=== PATIENT | male | born 1940 | race Caucasian/White ===

== ENCOUNTER 2022-07-06 16:36 | Inpatient (IN) | payer MEDICARE, BC ==
[~2022-07-06] VITALS: Ht 182.9 cm; Wt 85.7 kg
[2022-07-06] MEDS ORDERED: WARF1TAB2 (16:49)
[2022-07-06] MEDS ORDERED: AZITHROMYCIN 500MG/ D5W 250ML IVPB **ER PYXIS ONLY IV ONE (16:58)
[2022-07-06] MEDS ORDERED: CEFTRIAXONE 1 G VIAL ONE (16:59)
[2022-07-06] MEDS ORDERED: ACETAMINOPHEN 650 MG SUPP.RECT RC ONE ×2 (16:59→17:00)
[2022-07-06] MEDS ORDERED: IV NORMAL SALINE 500 ML BAG IV ONE (17:00)
[2022-07-06] MEDS ORDERED: CEFTRIAXONE 2 G in IV DEXTROSE 5% 50 ML IV ONE (17:00)
[2022-07-06] MEDS ORDERED: AZITHROMYCIN IV 500 MG in IV DEXTROSE 5% 250 ML IV ONE (17:00)
[2022-07-06 17:11] LABS: SITE, VBG RIGHT RADIAL; VENT MODE, VBG RA
--- NOTE | 2022-07-06 17:17 | NUR ---
PT IS IN ROOM #1A. DR BEARD EVALUATED THE PT.
--- NOTE | 2022-07-06 19:04 | NUR ---
REPORT WAS GIVEN TO PUBLIC SPEAKERLAWN AND GARDEN TECHNICIAN.
[2022-07-06 19:15] LABS: HEMATOCRIT 33.6 % (36.7-47.1); MEAN CORPUSCULAR HEMOGLOBIN 26.9 uug (23.8-33.4); MEAN CORPUSCULAR VOLUME 82.2 fL (73.0-96.2); PLATELET COUNT (AUTO) 325 K/uL (152-348)
[2022-07-06] MEDS ORDERED: CEFEPIME HCL 2 G in IV DEXTROSE 5% 100 ML IV SCH ×2 (19:15→23:45)
[2022-07-06 19:33] LABS: CARBON DIOXIDE 24 mmol/L (21-32); CHLORIDE 107 mmol/L (98-107); GLUCOSE 149 mg/dL (74-106); POTASSIUM 3.1 mmol/L (3.5-5.1); UREA NITROGEN, BLOOD 29 mg/dL (7-18)
[2022-07-06 19:34] LABS: *BILIRUBIN,URIN NEGATIVE (NEGATIVE); *BLOOD, URINE 2+ (NEGATIVE); *CLARITY,URINE CLEAR (CLEAR); *COLOR,URINE YELLOW (YELLOW); *KETONES,URINE NEGATIVE (NEGATIVE); *UROBILINOGEN,URINE 0.2 E.U./dl (NORMAL); LEUKOCYTE ESTERASE ,URINE 3+ (NEGATIVE); NITRITE, URINE NEGATIVE (NEGATIVE); UGLUCOSE NEGATIVE (NEGATIVE)
[2022-07-06] MEDS ORDERED: POTASSIUM CHLORIDE 20 MEQ POWDER PACKET GT ONE (19:45)
[2022-07-06 19:46] LABS: ALANINE AMINOTRANSFERASE 21 U/L (16-63); ALKALINE PHOSPHATASE 73 U/L (50-136); ASPARTATE AMINOTRANSFERASE 18 U/L (15-37); BILIRUBIN,DIRECT 0.4 mg/dL (0.0-0.2); BILIRUBIN,TOTAL 0.6 mg/dL (0.2-1.0); TOTAL PROTEIN, SERUM 6.5 g/dL (6.4-8.2)
[2022-07-06] MEDS ORDERED: ONDANSETRON 4 MG/2 ML VIAL IV PRN (22:00)
[2022-07-06] MEDS ORDERED: ACETAMINOPHEN 325 MG TABLET PO PRN (22:00)
[2022-07-06] MEDS ORDERED: CEFTRIAXONE 1 G in IV DEXTROSE 5% 50 ML IV SCH (22:00)
[2022-07-06] MEDS ORDERED: MORPHINE SULFATE 2 MG/1 ML DISP.SYRIN IV PRN (22:00)
[2022-07-06] MEDS ORDERED: ALBUTEROL SULFATE 2.5 MG/ 0.5 ML NEBU NEB PRN (22:00)
--- NOTE | 2022-07-06 22:54 | NUR ---
REPORT CALLED AND GIVEN TO FUNMILAYO SIFUENTES AT CCU.
--- NOTE | 2022-07-06 23:42 | NUR ---
Patient in a stable condition, via gurney was taken to CCU room to for a continued expert care.
--- NOTE | 2022-07-06 23:53 | NUR ---
Recieved pt from ED nurse. Pt is awake and oriented X2 on room air and able to move himself from the gurney to the bed with minimal assistance. Dr Mckenna has already seen the patient when he was in ED and entered orders for his care. Addendum: 07/07/22 at 0007 by FUNMILAYO JOE RN pt arrived with no belonging from ED. He stated that he lives at home with his
[2022-07-07] VITALS (27 sets, daily range): BP systolic 97–169; BP diastolic 7–99
[2022-07-07] MEDS ORDERED: POTASSIUM CHLORIDE 20 MEQ TAB.PRT.SR ONE (00:15)
--- NOTE | 2022-07-07 00:15 | NUR ---
ED nurse came up to unit to give potassium ordered for 194 in ED and not previously given.
[2022-07-07 00:36] LABS: RBC,URINE 20-50 /HPF (0-3)
[2022-07-07 00:37] LABS: BACTERIA,URINE MODERATE /HPF (NONE SEEN); SQUAMOUS EPITHELIAL CELL,UR NONE SEEN /HPF (NONE SEEN); WBC,URINE 50-80 /HPF (0-3)
[2022-07-07 05:11] LABS: HEMATOCRIT 34.6 % (36.7-47.1); MEAN CORPUSCULAR HEMOGLOBIN 26.6 uug (23.8-33.4); MEAN CORPUSCULAR VOLUME 83.3 fL (73.0-96.2); PLATELET COUNT (AUTO) 311 K/uL (152-348)
[2022-07-07 05:35] LABS: ALANINE AMINOTRANSFERASE 20 U/L (16-63); ALKALINE PHOSPHATASE 72 U/L (50-136); ASPARTATE AMINOTRANSFERASE 31 U/L (15-37); BILIRUBIN,TOTAL 0.5 mg/dL (0.2-1.0); CARBON DIOXIDE 28 mmol/L (21-32); CHLORIDE 106 mmol/L (98-107); CHOLESTEROL 112 mg/dL (<200); CREATININE 1.8 mg/dL (0.6-1.3); GLUCOSE 113 mg/dL (74-106); HDL CHOLESTEROL 36 mg/dL (40-60); MAGNESIUM 1.9 mg/dL (1.8-2.4); PHOSPHOROUS 4.2 mg/dL (2.5-4.9); POTASSIUM 4.1 mmol/L (3.5-5.1); TOTAL PROTEIN, SERUM 6.6 g/dL (6.4-8.2); TRIGLYCERIDES 54 MG/DL (30-150); UREA NITROGEN, BLOOD 34 mg/dL (7-18)
[2022-07-07 05:37] LABS: IRON, SERUM 16 ug/dL (50-175)
--- NOTE | 2022-07-07 05:48 | NUR ---
Dr Mckenna notified about increasing troponin of 179 from previous value of 162.
[2022-07-07] MEDS: PANTOPRAZOLE SODIUM 40 MG TABLET.DR PO SCH (06:06)
--- NOTE | 2022-07-07 06:12 | NUR ---
Spoke with Ruby Ramos about pt's condition and elevated troponin. She will enter orders and come to see the patient
[2022-07-07] MEDS ORDERED: HEPARIN SODIUM,PORCINE 5,000 UNITS/ML VIAL SQ SCH ×2 (09:00)
[2022-07-07] MEDS ORDERED: FUROSEMIDE 20 MG/2 ML VIAL IV SCH (09:00)
[2022-07-07] MEDS: CEFEPIME HCL 1 G in IV DEXTROSE 5% 50 ML IV SCH ×2 (09:23→21:53)
--- NOTE | 2022-07-07 15:08 | NUR ---
BETWEEN 1400:1500 HOURS, PATIENT'S HEART RATE JUMPED TO AFIB WITH RVR AT [address] UNABLE TO REACH [address] SANTACRUZ ON HIS PHONE AND UNABLE TO leave message because the voice mail is full. Also tried to reach BAILEE THE STUD SHEEP FARMER AND SHE DID NOT GARDEN LABOURER WELL AND THE VOICE MESSAGE IF FULL ALSO AND I COULD NOT LEAVE ANY MESSAGE . patient continued to be in afib, no drafter civil assign to the patient as yet. will MONITOR.
[2022-07-07] MEDS ORDERED: DILTIAZEM HCL 25 MG IV IV ONE (17:00)
[2022-07-07] MEDS ORDERED: WARFARIN SODIUM 5 MG TABLET PO ONE (17:00)
[2022-07-07] MEDS ORDERED: METOPROLOL TARTRATE 25 MG TABLET PO SCH (18:00)
[2022-07-07] MEDS: DOCUSATE SODIUM 100 MG CAPSULE PO SCH (21:00)
[2022-07-07] MEDS: DILTIAZEM HCL IV 125 MG in IV NORMAL SALINE 100 ML IV PRN (23:57)
[2022-07-08] VITALS (32 sets, daily range): BP systolic 78–157; BP diastolic 36–86
[2022-07-08 05:19] LABS: HEMATOCRIT 34.2 % (36.7-47.1); MEAN CORPUSCULAR VOLUME 82.5 fL (73.0-96.2); PLATELET COUNT (AUTO) 302 K/uL (152-348)
[2022-07-08] MEDS: METOPROLOL TARTRATE 25 MG TABLET PO SCH ×4 (05:32→21:42)
[2022-07-08 05:34] LABS: ALANINE AMINOTRANSFERASE 17 U/L (16-63); ALKALINE PHOSPHATASE 85 U/L (50-136); ASPARTATE AMINOTRANSFERASE 20 U/L (15-37); BILIRUBIN,TOTAL 0.5 mg/dL (0.2-1.0); CARBON DIOXIDE 24 mmol/L (21-32); CHLORIDE 107 mmol/L (98-107); CREATINE KINASE, TOTAL 28 U/L (39-308); CREATININE 2.8 mg/dL (0.6-1.3); GLUCOSE 111 mg/dL (74-106); MAGNESIUM 1.9 mg/dL (1.8-2.4); PHOSPHOROUS 3.3 mg/dL (2.5-4.9); POTASSIUM 3.7 mmol/L (3.5-5.1); TOTAL PROTEIN, SERUM 6.5 g/dL (6.4-8.2); UREA NITROGEN, BLOOD 48 mg/dL (7-18)
[2022-07-08] MEDS: PANTOPRAZOLE SODIUM 40 MG TABLET.DR PO SCH (06:19)
--- NOTE | 2022-07-08 07:30 | NUR ---
REPORT GIVEN TO NEISHA MELLO
[2022-07-08] MEDS: CEFEPIME HCL 1 G in IV DEXTROSE 5% 50 ML IV SCH ×2 (08:02→20:37)
--- NOTE | 2022-07-08 12:12 | NUR ---
While primary R.N. was on lunch break pt. remains with low SBP attending called and notified, with a call back from attending Florina Li she was updated on pt's condition. She will consult credit and loan collections supervisor for follow up on recommendations.
[2022-07-08] MEDS ORDERED: IV NORMAL SALINE 500 ML IV ONE (12:30)
[2022-07-08] MEDS: IV NS 1000 ML 1,000 ML IV PRN (13:43)
[2022-07-08] MEDS: DILTIAZEM HCL IV 125 MG in IV NORMAL SALINE 100 ML IV PRN (14:31)
[2022-07-08 16:34] LABS: *CREATININE,URINE 63.6 mg/dL (30-125)
[2022-07-08] MEDS: FUROSEMIDE 20 MG/2 ML VIAL IV SCH (16:45)
--- NOTE | 2022-07-08 16:58 | NUR ---
Pt's responded to question for Dr Sotelo about AFib. Patient has chronic A Fib that is controlled. Jaky Jen was notified about informed to notify Dr Sotelo.
[2022-07-08] MEDS ORDERED: [UNRECOGNIZED DRUG - REMARK] XX SCH (17:00)
[2022-07-08] MEDS ORDERED: WARFARIN SODIUM 5 MG TABLET PO ONE (17:00)
[2022-07-08 17:14] LABS: *URINE TOTAL PROTEIN RANDOM 617.1 mg/dL (<150/24HR)
[2022-07-08 17:28] LABS: *BILIRUBIN,URIN NEGATIVE (NEGATIVE); *BLOOD, URINE 3+ (NEGATIVE); *COLOR,URINE YELLOW (YELLOW); *KETONES,URINE 1+ (NEGATIVE); *UROBILINOGEN,URINE 0.2 E.U./dl (NORMAL); LEUKOCYTE ESTERASE ,URINE 3+ (NEGATIVE); NITRITE, URINE NEGATIVE (NEGATIVE); UGLUCOSE NEGATIVE (NEGATIVE)
[2022-07-08 17:37] LABS: *CLARITY,URINE TURBID (CLEAR)
[2022-07-08 19:13] LABS: BACTERIA,URINE MODERATE /HPF (NONE SEEN); SQUAMOUS EPITHELIAL CELL,UR FEW /HPF (NONE SEEN); WBC,URINE TNTC /HPF (0-3)
[2022-07-08] MEDS: DOCUSATE SODIUM 100 MG CAPSULE PO SCH (21:42)
[2022-07-09] VITALS (23 sets, daily range): BP systolic 83–134; BP diastolic 26–73
[2022-07-09] MEDS: DILTIAZEM HCL IV 125 MG in IV NORMAL SALINE 100 ML IV PRN (01:08)
[2022-07-09] MEDS: IV NS 1000 ML 1,000 ML IV PRN ×2 (01:13→15:35)
[2022-07-09 05:16] LABS: HEMATOCRIT 29.4 % (36.7-47.1); MEAN CORPUSCULAR HEMOGLOBIN 26.4 uug (23.8-33.4); MEAN CORPUSCULAR VOLUME 81.4 fL (73.0-96.2); PLATELET COUNT (AUTO) 246 K/uL (152-348)
--- NOTE | 2022-07-09 05:26 | NUR ---
On 3 L N/C this shift.
[2022-07-09 05:34] LABS: CARBON DIOXIDE 25 mmol/L (21-32); CHLORIDE 107 mmol/L (98-107); CREATININE 2.3 mg/dL (0.6-1.3); GLUCOSE 115 mg/dL (74-106); MAGNESIUM 1.8 mg/dL (1.8-2.4); PHOSPHOROUS 3.5 mg/dL (2.5-4.9); POTASSIUM 3.3 mmol/L (3.5-5.1); UREA NITROGEN, BLOOD 50 mg/dL (7-18)
[2022-07-09] MEDS: METOPROLOL TARTRATE 25 MG TABLET PO SCH ×3 (05:49→21:06)
[2022-07-09] MEDS: PANTOPRAZOLE SODIUM 40 MG TABLET.DR PO SCH (05:49)
[2022-07-09] MEDS: FUROSEMIDE 20 MG/2 ML VIAL IV SCH (09:10)
[2022-07-09] MEDS: GLUCERNA SHAKE 237 ML CAN PO SCH (09:15)
[2022-07-09] MEDS: CEFEPIME HCL 1 G in IV DEXTROSE 5% 50 ML IV SCH ×2 (09:36→20:29)
[2022-07-09] MEDS ORDERED: POTASSIUM CHLORIDE 50 ML IV SCH (10:00)
[2022-07-09 10:06] LABS: A/G RATIO 0.5 (0.7-1.7); ALPHA-1-GLOBULIN 0.5 g/dL (0.0-0.4); ALPHA-2-GLOBULIN 1.1 g/dL (0.4-1.0); GAMMA GLOBULIN 1.3 g/dL (0.4-1.8); GLOBULIN, TOTAL 3.9 g/dL (2.2-3.9); M-SPIKE Not Observed g/dL (Not Observed)
--- NOTE | 2022-07-09 15:06 | NUR ---
HELD METOPROLOL. PATIENT ON CARDIZEM DRIP. WILL FOLLOW UP WITH CARDIOLOGY.
[2022-07-09] MEDS: [UNRECOGNIZED DRUG - REMARK] XX SCH (17:00)
[2022-07-09] MEDS: DOCUSATE SODIUM 100 MG CAPSULE PO SCH (20:29)
[2022-07-10] VITALS (20 sets, daily range): BP systolic 114–149; BP diastolic 43–91
[2022-07-10] MEDS: IV NS 1000 ML 1,000 ML IV PRN (02:39)
[2022-07-10 05:36] LABS: HEMATOCRIT 31.9 % (36.7-47.1); MEAN CORPUSCULAR VOLUME 81.4 fL (73.0-96.2); PLATELET COUNT (AUTO) 279 K/uL (152-348)
[2022-07-10 05:37] LABS: CARBON DIOXIDE 28 mmol/L (21-32); CHLORIDE 108 mmol/L (98-107); CREATININE 1.4 mg/dL (0.6-1.3); GLUCOSE 102 mg/dL (74-106); POTASSIUM 3.1 mmol/L (3.5-5.1); UREA NITROGEN, BLOOD 36 mg/dL (7-18)
--- NOTE | 2022-07-10 06:27 | NUR ---
Recieved patient in bed from Day shift RN. Pt is alert and oriented x4. He is able to follow commands and interact meaningfully during my assessment. Mary Alice received an update at 20:15 via telephone. Pt had a restful night. Vitals signs stable at the change of shift and report endorsed to day shift RN. Critical INR - of 4.04. Dr Renteria paged with critical results, - awaiting a call back from Dr. Renteria or [facility] oncall provider.
[2022-07-10] MEDS: METOPROLOL TARTRATE 25 MG TABLET PO SCH ×3 (06:33→17:52)
[2022-07-10] MEDS: PANTOPRAZOLE SODIUM 40 MG TABLET.DR PO SCH (06:33)
[2022-07-10] MEDS: CEFEPIME HCL 1 G in IV DEXTROSE 5% 50 ML IV SCH ×2 (09:54→21:08)
[2022-07-10] MEDS: FUROSEMIDE 20 MG/2 ML VIAL IV SCH (10:09)
[2022-07-10] MEDS: GLUCERNA SHAKE 237 ML CAN PO SCH (10:09)
[2022-07-10] MEDS: POTASSIUM CHLORIDE 20 MEQ TAB.PRT.SR PO SCH ×2 (10:09→10:12)
[2022-07-10] MEDS ORDERED: FUROSEMIDE 40 MG TABLET PO ONE (14:00)
[2022-07-10] MEDS: [UNRECOGNIZED DRUG - REMARK] XX SCH (17:00)
[2022-07-10] MEDS: DOCUSATE SODIUM 100 MG CAPSULE PO SCH (21:08)
[2022-07-11] VITALS: BP 133/73
[2022-07-11] MEDS: IV NS 1000 ML 1,000 ML IV PRN (03:04)
[2022-07-11 04:00] VITALS: BP 143/94
[2022-07-11 04:53] LABS: HEMATOCRIT 36.2 % (36.7-47.1); MEAN CORPUSCULAR HEMOGLOBIN 26.8 uug (23.8-33.4); MEAN CORPUSCULAR VOLUME 81.8 fL (73.0-96.2); PLATELET COUNT (AUTO) 332 K/uL (152-348)
[2022-07-11 05:00] LABS: CREATININE 1.2 mg/dL (0.6-1.3); POTASSIUM 3.1 mmol/L (3.5-5.1)
[2022-07-11 08:00] VITALS: BP 154/102
[2022-07-11] MEDS: GLUCERNA SHAKE 237 ML CAN PO SCH (09:55)
[2022-07-11] MEDS: METOPROLOL TARTRATE 25 MG TABLET PO SCH ×2 (09:55→17:56)
[2022-07-11] MEDS: PANTOPRAZOLE SODIUM 40 MG TABLET.DR PO SCH (09:55)
[2022-07-11] MEDS: CEFEPIME HCL 1 G in IV DEXTROSE 5% 50 ML IV SCH ×2 (09:58→21:01)
[2022-07-11] MEDS ORDERED: POTASSIUM CHLORIDE 20 MEQ TAB.PRT.SR PO ONE (10:00)
[2022-07-11] MEDS ORDERED: POTASSIUM CHLORIDE 50 ML IV SCH (10:00)
[2022-07-11 12:00] VITALS: BP 141/92
[2022-07-11 16:00] VITALS: BP 144/64
[2022-07-11] MEDS: [UNRECOGNIZED DRUG - REMARK] XX SCH (17:00)
[2022-07-11 20:00] VITALS: BP 123/69
[2022-07-11] MEDS: DOCUSATE SODIUM 100 MG CAPSULE PO SCH (20:59)
[2022-07-11] MEDS: TAMSULOSIN HCL 0.4 MG CAP.SR.24H PO SCH (20:59)
[2022-07-12] VITALS: BP 130/74
[2022-07-12 04:00] VITALS: BP 126/84
[2022-07-12 04:52] LABS: HEMATOCRIT 36.3 % (36.7-47.1); MEAN CORPUSCULAR HEMOGLOBIN 26.2 uug (23.8-33.4); MEAN CORPUSCULAR VOLUME 81.9 fL (73.0-96.2); PLATELET COUNT (AUTO) 358 K/uL (152-348)
[2022-07-12 04:55] LABS: CREATININE 1.1 mg/dL (0.6-1.3); POTASSIUM 3.5 mmol/L (3.5-5.1)
--- NOTE | 2022-07-12 07:00 | NUR ---
Recieved pt from bellows assembler nurse. Pt is resting comfortably on room air with IV at TKO. Cardiac rhytm is A Fib. VS stable and pt is afebrile. Urine is yellow and clear.
[2022-07-12] MEDS: PANTOPRAZOLE SODIUM 40 MG TABLET.DR PO SCH (07:47)
[2022-07-12 08:00] VITALS: BP 149/81
[2022-07-12] MEDS: CEFEPIME HCL 1 G in IV DEXTROSE 5% 50 ML IV SCH ×2 (08:00→20:42)
[2022-07-12] MEDS: METOPROLOL TARTRATE 25 MG TABLET PO SCH ×2 (08:02→17:29)
[2022-07-12] MEDS: GLUCERNA SHAKE 237 ML CAN PO SCH ×2 (08:02→17:27)
[2022-07-12 12:04] VITALS: BP 115/72
[2022-07-12 16:00] VITALS: BP 132/76
[2022-07-12] MEDS: [UNRECOGNIZED DRUG - REMARK] XX SCH (17:00)
[2022-07-12 20:00] VITALS: BP 125/58
[2022-07-12] MEDS: TAMSULOSIN HCL 0.4 MG CAP.SR.24H PO SCH (20:42)
[2022-07-12] MEDS: DOCUSATE SODIUM 100 MG CAPSULE PO SCH (20:42)
[2022-07-13] VITALS: BP 101/71
[2022-07-13 04:00] VITALS: BP 123/77
[2022-07-13 05:07] LABS: HEMATOCRIT 33.4 % (36.7-47.1); MEAN CORPUSCULAR HEMOGLOBIN 25.9 uug (23.8-33.4); MEAN CORPUSCULAR VOLUME 81.5 fL (73.0-96.2); PLATELET COUNT (AUTO) 386 K/uL (152-348)
[2022-07-13 05:19] LABS: CARBON DIOXIDE 29 mmol/L (21-32); CHLORIDE 107 mmol/L (98-107); GLUCOSE 127 mg/dL (74-106); POTASSIUM 3.1 mmol/L (3.5-5.1); UREA NITROGEN, BLOOD 21 mg/dL (7-18)
--- NOTE | 2022-07-13 06:21 | NUR ---
End of shift summary. Patient received in bed, awake and alert to name only. Patient is telemetry status. Pt had a comfortable night without any distress. No complaint of pain., however patient is significantly more guarded and does not move as freely as he did two days ago when I cared for him. Pt seems reluctant to move when asked to do so. He reaches his hand out to me in an effort to have me turn him. Patient slept well. He had 2 large bowel movements, brown and pasty. Vitals signs stable at the change of shift. [facility].
[2022-07-13 08:00] VITALS: BP 167/84
[2022-07-13] MEDS: PANTOPRAZOLE SODIUM 40 MG TABLET.DR PO SCH (08:32)
[2022-07-13] MEDS: CEFEPIME HCL 1 G in IV DEXTROSE 5% 50 ML IV SCH ×2 (08:32→20:13)
[2022-07-13] MEDS: METOPROLOL TARTRATE 25 MG TABLET PO SCH (08:39)
[2022-07-13] MEDS: GLUCERNA SHAKE 237 ML CAN PO SCH ×2 (08:47→18:28)
[2022-07-13] MEDS ORDERED: POTASSIUM CHLORIDE 20 MEQ TAB.PRT.SR PO ONE ×2 (09:15→14:45)
[2022-07-13] MEDS: IV NS 1000 ML 1,000 ML IV PRN ×2 (11:51→23:32)
[2022-07-13 12:00] VITALS: BP 127/84
[2022-07-13] MEDS ORDERED: DIGOXIN 125 MCG TABLET PO SCH (14:45)
[2022-07-13 16:00] VITALS: BP 129/71
[2022-07-13] MEDS ORDERED: WARFARIN SODIUM 5 MG TABLET PO ONE (17:00)
[2022-07-13] MEDS: [UNRECOGNIZED DRUG - REMARK] XX SCH (17:00)
[2022-07-13] MEDS: METOPROLOL TARTRATE 50 MG TABLET PO SCH (18:25)
--- NOTE | 2022-07-13 19:03 | NUR ---
Speech evaluation completed. Cleared by speech therapist for cardiac diet, regular consistency, along with thin liquids.
[2022-07-13 20:00] VITALS: BP 107/49
[2022-07-13] MEDS: TAMSULOSIN HCL 0.4 MG CAP.SR.24H PO SCH (20:12)
[2022-07-13] MEDS: DOCUSATE SODIUM 100 MG CAPSULE PO SCH (20:15)
--- NOTE | 2022-07-14 02:22 | NUR ---
Transfer Note Pt transferred to Room 329 via bed Vital signs stable. Report endorsed to Edith DRIVER.
--- NOTE | 2022-07-14 02:45 | NUR ---
RECD PT FROM CCU,VIA BED, NO ACUTE DISTRESS NOTED,ALERT,ORIENTEDX1,ABLE TO FF SIMPLE COMMANDS. DNR/DNI STATUS.ON TELEMETRY AFIB W/ BB,EF IS 60-65%,INTERMITTENTLY CONFUSED. IV FLUIDS NS AT 90ML/HR INFUSINGWELL VIA PERIPHERAL IV ON LEFT ,HAND G 22. KEPT DRY AND CLEAN,SALEH CATH DRAINING FAIRLY WELL TO HELGA URINE.ON CARDIAC DIET.PASSED SWALLOW TEST EARLIER.COCCYX AREA VERY RED, REPOSITIONED FOR COMFORT, HAD A MEDIUM BM ON DIAPER, DESTIN CARE DONE. MEPILEX APPLIED OVER REDDENED AREA.
[2022-07-14 02:50] VITALS: BP 100/58
[2022-07-14 04:00] VITALS: BP 102/55
[2022-07-14 07:48] LABS: HEMATOCRIT 31.4 % (36.7-47.1); MEAN CORPUSCULAR HEMOGLOBIN 26.6 uug (23.8-33.4); MEAN CORPUSCULAR VOLUME 83.6 fL (73.0-96.2); PLATELET COUNT (AUTO) 355 K/uL (152-348)
--- NOTE | 2022-07-14 07:58 | NUR ---
ENDORSED TO AM NURSE , IN APPARENTLY FAIR CONDITION. SOUND ASLEEP AT THIS TIME..
[2022-07-14 08:13] LABS: CREATININE 0.9 mg/dL (0.6-1.3); POTASSIUM 3.7 mmol/L (3.5-5.1)
[2022-07-14] MEDS ORDERED: DIGOXIN 500 MCG/2 ML AMP IV ONE (08:45)
[2022-07-14] MEDS: CEFEPIME HCL 1 G in IV DEXTROSE 5% 50 ML IV SCH (09:35)
[2022-07-14] MEDS: METOPROLOL TARTRATE 50 MG TABLET PO SCH ×2 (09:35→17:21)
[2022-07-14] MEDS: GLUCERNA SHAKE 237 ML CAN PO SCH ×2 (09:36→17:19)
[2022-07-14] MEDS: PANTOPRAZOLE SODIUM 40 MG TABLET.DR PO SCH (09:39)
[2022-07-14 11:56] VITALS: BP 114/66
[2022-07-14 16:54] VITALS: BP 131/56
[2022-07-14] MEDS ORDERED: WARFARIN SODIUM 5 MG TABLET PO ONE (17:00)
[2022-07-14] MEDS ORDERED: CEFEPIME HCL 1 G in IV DEXTROSE 5% 50 ML IV SCH (17:00)
[2022-07-14 17:21] VITALS: BP 139/60
[2022-07-14] MEDS ORDERED: TAMS-3 PO (21:47)
[2022-07-14] MEDS ORDERED: DOCU100C36 PO (21:47)
[2022-07-14] MEDS ORDERED: NUT.237L36 PO (21:47)
[2022-07-14] MEDS ORDERED: METO100T14 PO (21:47)
[2022-07-14] MEDS ORDERED: ACET-2154 PO (21:47)
[2022-07-14] MEDS ORDERED: ALBU2.5V38 NEB (21:47)
[2022-07-14] MEDS ORDERED: ALBU1.25 IH (21:47)
[2022-07-14] MEDS ORDERED: DIGO125T PO (21:47)
[2022-07-14] MEDS ORDERED: PANT40TA49 PO (21:47)
[2022-07-15] MEDS ORDERED: DIGOXIN 125 MCG TABLET PO SCH (09:00)
[2022-07-15] MEDS ORDERED: WARF-58 PO (11:55)
== END 2022-07-14 18:21 | DRG 871 ==
LOC: ER 16:39 → CCU 23:20 → TELE3 07-14 02:40
PROVIDERS: ADMIT Internal Medicine; ATTEND Nurse Practitioner Acute Care
DX: A41.9 Sepsis, unspecified organism (principal); E43 Unspecified severe protein-calorie malnutrition; G92.8 Other toxic encephalopathy; I21.A1 Myocardial infarction type 2; I50.33 Acute on chronic diastolic (congestive) heart failure; N17.0 Acute kidney failure with tubular necrosis; N13.6 Pyonephrosis; E87.20 Acidosis, unspecified; I48.20 Chronic atrial fibrillation, unspecified; D68.69 Other thrombophilia; J84.9 Interstitial pulmonary disease, unspecified; R65.20 Severe sepsis without septic shock; I48.91 Unspecified atrial fibrillation; D64.9 Anemia, unspecified; E87.6 Hypokalemia; E88.09 Other disorders of plasma-protein metabolism, not elsewhere classified; Z20.822 Contact with and (suspected) exposure to COVID-19; Z86.73 Personal history of transient ischemic attack (TIA), and cerebral infarction without residual deficits; Z79.01 Long term (current) use of anticoagulants; N40.0 Benign prostatic hyperplasia without lower urinary tract symptoms; I25.10 Atherosclerotic heart disease of native coronary artery without angina pectoris; F01.50 Vascular dementia, unspecified severity, without behavioral disturbance, psychotic disturbance, mood disturbance, and anxiety; Z74.09 Other reduced mobility; Z68.25 Body mass index [BMI] 25.0-25.9, adult; N18.9 Chronic kidney disease, unspecified; N40.1 Benign prostatic hyperplasia with lower urinary tract symptoms; B96.1 Klebsiella pneumoniae [K. pneumoniae] as the cause of diseases classified elsewhere; Z66 Do not resuscitate
CPT/HCPCS: 36415; 36600; 70450; 71045; 83550; 83605; 83735; 83935; 83970; 84100; 84153; 84155; 84156; 84165; 84300; 84443; 84484; 85025; 85610; 85730; 87040; 93005; 93307; A4663; A6209; C1758; G0378; J0456; J0692; J0696; J1160; J1940; J3480; J3490; J7040; J7042

== ENCOUNTER 2022-07-14 18:22 | Inpatient (IN) | payer MEDICARE, BC ==
[~2022-07-14] VITALS: Ht 172.7 cm; Wt 117.5 kg
[~2022-07-14 18:22] MED LIST: WARF1TAB2
[2022-07-14] MEDS ORDERED: REMEDY ESSENTIAL ZINC PASTE 113 GM TOP PRN (20:00)
--- NOTE | 2022-07-14 20:00 | NUR ---
Received a 81 year old male from med surg with admitting diagnosis of acute metabolic encepalopathy, sepsis, UTI and general weakness. AAOx2-3 with periods of confusion at times. Hx of Dementia, Afib,HTN and cholecystitis. All needs attended. VSS Skin intact, redness on sacral area. Pruitt d/bud @ 1400 and will monitor for voiding. Patient bladder scan noted 395 ml in the bladder. Dr Manning aware. Abdomen was distended, straight cath obtained 650 cc yellow urine. Kept comfortable. Fall precautions maintained. #20 heplock on left arm. Siderails up for safety.
[2022-07-14] MEDS ORDERED: DOCU100C36 PO (21:47)
[2022-07-14] MEDS ORDERED: METO100T14 PO (21:47)
[2022-07-14] MEDS ORDERED: ALBU1.25 IH (21:47)
[2022-07-14] MEDS ORDERED: NUT.237L36 PO (21:47)
[2022-07-14] MEDS ORDERED: ACET-2154 PO (21:47)
[2022-07-14] MEDS ORDERED: ALBU2.5V38 NEB (21:47)
[2022-07-14] MEDS ORDERED: TAMS-3 PO (21:47)
[2022-07-14] MEDS ORDERED: DIGO125T PO (21:47)
[2022-07-14] MEDS ORDERED: PANT40TA49 PO (21:47)
[2022-07-14 21:50] VITALS: BP 122/63
[2022-07-15 07:52] VITALS: BP 157/76
[2022-07-15] MEDS ORDERED: WARF-58 PO (11:55)
[2022-07-15] MEDS ORDERED: ALBUTEROL SULFATE 2.5 MG/3 ML NEBU NEB PRN (13:15)
[2022-07-15] MEDS: PANTOPRAZOLE SODIUM 40 MG TABLET.DR PO SCH (13:29)
[2022-07-15] MEDS: METOPROLOL SUCCINATE XL 50 MG TAB.SR.24H PO SCH (13:30)
[2022-07-15] MEDS: DIGOXIN 125 MCG TABLET PO SCH (13:30)
[2022-07-15] MEDS: ENSURE CLEAR 240 ML LIQUID (MIX BERRY) PO SCH ×2 (13:45→17:02)
--- NOTE | 2022-07-15 13:56 | NUR ---
INTERDISCIPLINARY TEAM CONFERENCE
[2022-07-15 16:13] VITALS: BP 130/77
[2022-07-15] MEDS ORDERED: GLUCERNA SHAKE 237 ML CAN PO SCH (17:00)
[2022-07-15] MEDS ORDERED: WARFARIN SODIUM 5 MG TABLET PO ONE (17:00)
[2022-07-15] MEDS: COUMADIN VARIABLE DOSE REMINDE XX SCH (17:03)
[2022-07-15 20:00] VITALS: BP 142/62
[2022-07-15] MEDS: DOCUSATE SODIUM 100 MG CAPSULE PO SCH ×2 (20:54→20:58)
[2022-07-15] MEDS ORDERED: TAMSULOSIN HCL 0.4 MG CAP.SR.24H PO SCH (21:00)
[2022-07-15] MEDS: ENOXAPARIN SODIUM 120 MG/0.8 ML SYRINGE SQ SCH (21:16)
--- NOTE | 2022-07-15 22:40 | NUR ---
Bladder scan performed 767 ml noted, In and out done= 920 ml dark yellow colored urine output noted. Patient denied any bladder discomforts initially, tolerated procedure well.
--- NOTE | 2022-07-16 06:25 | NUR ---
Bladder quite distended, but denies any pain/discomforts, bladder scan performed shows 707ml urine volume, In and out total of 1280 ml, well tolerated with small streaks of fresh red blood noted. Will endorsed accordingly to oncoming shift.
[2022-07-16] MEDS: PANTOPRAZOLE SODIUM 40 MG TABLET.DR PO SCH (06:30)
[2022-07-16 08:03] VITALS: BP 126/64
[2022-07-16] MEDS: ENSURE CLEAR 240 ML LIQUID (MIX BERRY) PO SCH ×2 (08:35→17:06)
[2022-07-16] MEDS: DIGOXIN 125 MCG TABLET PO SCH (08:35)
[2022-07-16] MEDS: METOPROLOL SUCCINATE XL 50 MG TAB.SR.24H PO SCH (08:35)
[2022-07-16] MEDS: ENOXAPARIN SODIUM 120 MG/0.8 ML SYRINGE SQ SCH ×2 (08:40→20:28)
[2022-07-16] MEDS: TAMSULOSIN HCL 0.4 MG CAP.SR.24H PO SCH ×2 (13:23→21:19)
--- NOTE | 2022-07-16 15:52 | NUR ---
PATIENT STILL NOTED WITH URINE RETENTION, BLADDER SCAN PERFORMED, AND IN AND OUT CATH WITH OUT PUT OF 600ML. Addendum: 07/16/22 at 1607 by VONDA GONZALEZ RN, RN REFUSED TO HAVE SALEH AT THIS TIME, SEVERIANO GILBERT IS AWARE ABOUT URINE RETENTION.
[2022-07-16 15:56] VITALS: BP 123/63
[2022-07-16] MEDS ORDERED: WARFARIN SODIUM 5 MG TABLET PO ONE (17:00)
[2022-07-16] MEDS: COUMADIN VARIABLE DOSE REMINDE XX SCH (17:06)
[2022-07-16 20:00] VITALS: BP 105/70
[2022-07-16] MEDS: DOCUSATE SODIUM 100 MG CAPSULE PO SCH (20:28)
[2022-07-17 04:00] VITALS: BP 124/68
[2022-07-17] MEDS: PANTOPRAZOLE SODIUM 40 MG TABLET.DR PO SCH (06:01)
[2022-07-17 07:45] VITALS: BP 127/70
[2022-07-17] MEDS: ENSURE CLEAR 240 ML LIQUID (MIX BERRY) PO SCH ×2 (08:39→17:21)
[2022-07-17] MEDS: METOPROLOL SUCCINATE XL 50 MG TAB.SR.24H PO SCH (08:41)
[2022-07-17] MEDS: TAMSULOSIN HCL 0.4 MG CAP.SR.24H PO SCH ×2 (08:42→20:53)
[2022-07-17] MEDS: ENOXAPARIN SODIUM 120 MG/0.8 ML SYRINGE SQ SCH ×2 (08:42→20:55)
[2022-07-17] MEDS: DIGOXIN 125 MCG TABLET PO SCH (08:42)
--- NOTE | 2022-07-17 13:53 | NUR ---
INDIVIDUALIZED PLAN OF CARE
[2022-07-17 16:32] VITALS: BP 146/86
[2022-07-17] MEDS ORDERED: WARFARIN SODIUM 5 MG TABLET PO ONE (17:00)
[2022-07-17] MEDS: COUMADIN VARIABLE DOSE REMINDE XX SCH (17:22)
--- NOTE | 2022-07-17 18:21 | NUR ---
Patient alert and oriented, able to communicate simple needs and follow simple directions. OOB with physical therapy during shift, actively able to participate in therapy. Patient requires extensive assist with ADLS, incontinent of both, good perineal care provided. Patient denies any bladder discomfort, voiding freely. No s/s of urinary retention noted. On blood thinners as ordered; no s/s of bleeding, safety precautions observed. All needs anticipated and met.
[2022-07-17 20:00] VITALS: BP_SYST 124; BP_SYST 131; BP_DIAS 53; BP_DIAS 66
[2022-07-17] MEDS: DOCUSATE SODIUM 100 MG CAPSULE PO SCH (20:53)
[2022-07-18 04:00] VITALS: BP 125/75
--- NOTE | 2022-07-18 04:08 | NUR ---
AAOx2-3 with some periods of confusion at times. Needs attended. VSS. ' Repositioned for comfort. Turned to sides. Incontinent of urine x2. Kept clean and dry. No BM today. Fall precautions maintained. Siderails up for safety.
[2022-07-18] MEDS: PANTOPRAZOLE SODIUM 40 MG TABLET.DR PO SCH (06:03)
[2022-07-18 07:33] VITALS: BP 133/69
[2022-07-18] MEDS: ENSURE CLEAR 240 ML LIQUID (MIX BERRY) PO SCH ×2 (09:47→16:43)
[2022-07-18] MEDS: METOPROLOL SUCCINATE XL 50 MG TAB.SR.24H PO SCH (09:48)
[2022-07-18] MEDS: DIGOXIN 125 MCG TABLET PO SCH (09:48)
[2022-07-18] MEDS: TAMSULOSIN HCL 0.4 MG CAP.SR.24H PO SCH ×2 (09:49→20:22)
[2022-07-18] MEDS: ENOXAPARIN SODIUM 120 MG/0.8 ML SYRINGE SQ SCH (09:50)
[2022-07-18 15:42] VITALS: BP 126/57
[2022-07-18] MEDS: WARFARIN SODIUM 5 MG TABLET PO SCH (16:42)
[2022-07-18] MEDS: COUMADIN VARIABLE DOSE REMINDE XX SCH (16:43)
[2022-07-18 20:00] VITALS: BP 122/58
[2022-07-18] MEDS: DOCUSATE SODIUM 100 MG CAPSULE PO SCH (20:22)
[2022-07-19 04:29] VITALS: BP 139/76
--- NOTE | 2022-07-19 04:57 | NUR ---
AAOx2-3 with periods of confusion. VSS Needs attended. Tolerated po meds well. Fall precautions maintained. Incontinent of bowel and bladder. Slept well throughout the night. No acute distress noted. No complaints presented during shift.
[2022-07-19] MEDS: PANTOPRAZOLE SODIUM 40 MG TABLET.DR PO SCH (06:07)
[2022-07-19 08:00] VITALS: BP 123/76
[2022-07-19 08:04] LABS: HEMATOCRIT 29.6 % (36.7-47.1); MEAN CORPUSCULAR HEMOGLOBIN 26.8 uug (23.8-33.4); PLATELET COUNT (AUTO) 433 K/uL (152-348)
[2022-07-19 09:05] LABS: CARBON DIOXIDE 25 mmol/L (21-32); CHLORIDE 106 mmol/L (98-107); CREATININE 1.9 mg/dL (0.6-1.3); GLUCOSE 101 mg/dL (74-106); MAGNESIUM 2.1 mg/dL (1.8-2.4); PHOSPHOROUS 4.3 mg/dL (2.5-4.9); POTASSIUM 4.1 mmol/L (3.5-5.1); UREA NITROGEN, BLOOD 40 mg/dL (7-18)
[2022-07-19] MEDS: TAMSULOSIN HCL 0.4 MG CAP.SR.24H PO SCH ×2 (09:39→20:41)
[2022-07-19] MEDS: ENSURE CLEAR 240 ML LIQUID (MIX BERRY) PO SCH ×2 (09:39→17:30)
[2022-07-19] MEDS: METOPROLOL SUCCINATE XL 50 MG TAB.SR.24H PO SCH (09:40)
[2022-07-19] MEDS: DIGOXIN 125 MCG TABLET PO SCH (09:40)
[2022-07-19] MEDS ORDERED: IV NS 1000 ML 1,000 ML IV PRN (11:30)
[2022-07-19 15:33] VITALS: BP 118/59
[2022-07-19] MEDS: COUMADIN VARIABLE DOSE REMINDE XX SCH (17:30)
[2022-07-19] MEDS: WARFARIN SODIUM 5 MG TABLET PO SCH (17:30)
[2022-07-19 19:57] VITALS: BP 116/63
[2022-07-19] MEDS: DOCUSATE SODIUM 100 MG CAPSULE PO SCH (20:41)
[2022-07-20 04:28] VITALS: BP 114/78
[2022-07-20] MEDS: PANTOPRAZOLE SODIUM 40 MG TABLET.DR PO SCH (06:09)
[2022-07-20 07:37] VITALS: BP 121/68
[2022-07-20 07:53] LABS: HEMATOCRIT 30.6 % (36.7-47.1); MEAN CORPUSCULAR HEMOGLOBIN 26.7 uug (23.8-33.4); MEAN CORPUSCULAR VOLUME 81.6 fL (73.0-96.2); PLATELET COUNT (AUTO) 479 K/uL (152-348)
[2022-07-20 08:26] LABS: BILIRUBIN,TOTAL 0.6 mg/dL (0.2-1.0); CREATININE 1.2 mg/dL (0.6-1.3); MAGNESIUM 1.8 mg/dL (1.8-2.4); PHOSPHOROUS 3.5 mg/dL (2.5-4.9); POTASSIUM 3.7 mmol/L (3.5-5.1); TOTAL PROTEIN, SERUM 6.7 g/dL (6.4-8.2)
[2022-07-20] MEDS: DIGOXIN 125 MCG TABLET PO SCH (08:45)
[2022-07-20] MEDS: TAMSULOSIN HCL 0.4 MG CAP.SR.24H PO SCH ×2 (08:45→20:28)
[2022-07-20] MEDS: METOPROLOL SUCCINATE XL 50 MG TAB.SR.24H PO SCH (08:46)
[2022-07-20] MEDS: ENSURE CLEAR 240 ML LIQUID (MIX BERRY) PO SCH ×2 (08:46→16:29)
--- NOTE | 2022-07-20 14:19 | NUR ---
patient refused to have CT of head stated he has done already. Addendum: 07/21/22 at 5277 by VONDA GONZALEZ RN, RN dr funk made aware
[2022-07-20 15:16] VITALS: BP 101/65
[2022-07-20 15:22] LABS: THYROID STIMULATING HORMONE 4.115 mIU/mL (0.358-3.740)
[2022-07-20] MEDS: COUMADIN VARIABLE DOSE REMINDE XX SCH (16:29)
[2022-07-20] MEDS: WARFARIN SODIUM 2 MG TABLET PO SCH (16:29)
[2022-07-20 19:50] VITALS: BP 108/70
[2022-07-20] MEDS: DOCUSATE SODIUM 100 MG CAPSULE PO SCH (20:28)
--- NOTE | 2022-07-21 04:38 | NUR ---
patient noted with excoriation to left buttock, wound care consult, dressing applied, encouraged patient to turn and reposition, patient noted with going back to supine position right away, continue to monitor and reinforce and reminders to turn and reposition.
[2022-07-21 04:45] VITALS: BP 113/66
[2022-07-21] MEDS: PANTOPRAZOLE SODIUM 40 MG TABLET.DR PO SCH (06:07)
[2022-07-21] MEDS: ENSURE CLEAR 240 ML LIQUID (MIX BERRY) PO SCH ×2 (08:01→17:22)
[2022-07-21 08:05] VITALS: BP 128/70
[2022-07-21] MEDS: TAMSULOSIN HCL 0.4 MG CAP.SR.24H PO SCH ×2 (09:47→20:45)
[2022-07-21] MEDS: DIGOXIN 125 MCG TABLET PO SCH (09:49)
[2022-07-21] MEDS: METOPROLOL SUCCINATE XL 50 MG TAB.SR.24H PO SCH (09:49)
[2022-07-21 16:00] VITALS: BP 110/62
[2022-07-21] MEDS: WARFARIN SODIUM 2 MG TABLET PO SCH (16:51)
[2022-07-21] MEDS: COUMADIN VARIABLE DOSE REMINDE XX SCH (17:22)
[2022-07-21 20:00] VITALS: BP 123/63
[2022-07-21] MEDS: DOCUSATE SODIUM 100 MG CAPSULE PO SCH (20:45)
[2022-07-22] MEDS: PANTOPRAZOLE SODIUM 40 MG TABLET.DR PO SCH (05:45)
--- NOTE | 2022-07-22 07:15 | NUR ---
Received report from NEISHA Jerez. Pt stable, asleep in bed. No s/s of distress noted. Bed in lowest position, bed alarm on, call light within reach.
[2022-07-22 08:00] VITALS: BP 111/66
[2022-07-22] MEDS: ENSURE CLEAR 240 ML LIQUID (MIX BERRY) PO SCH ×2 (08:34→17:32)
[2022-07-22] MEDS: TAMSULOSIN HCL 0.4 MG CAP.SR.24H PO SCH ×2 (09:17→20:42)
[2022-07-22] MEDS: DIGOXIN 125 MCG TABLET PO SCH (09:17)
[2022-07-22] MEDS: METOPROLOL SUCCINATE XL 50 MG TAB.SR.24H PO SCH (09:18)
--- NOTE | 2022-07-22 10:17 | NUR ---
INTERDISCIPLINARY TEAM CONFERENCE
[2022-07-22] MEDS: ENOXAPARIN SODIUM 120 MG/0.8 ML SYRINGE SQ SCH ×2 (11:07→20:43)
[2022-07-22 11:28] LABS: *BILIRUBIN,URIN NEGATIVE (NEGATIVE); *CLARITY,URINE CLEAR (CLEAR); *COLOR,URINE YELLOW (YELLOW); *KETONES,URINE NEGATIVE (NEGATIVE); LEUKOCYTE ESTERASE ,URINE TRACE (NEGATIVE); NITRITE, URINE NEGATIVE (NEGATIVE); UGLUCOSE NEGATIVE (NEGATIVE)
[2022-07-22 11:36] LABS: *CREATININE,URINE 70.9 mg/dL (30-125); *URINE TOTAL PROTEIN RANDOM 61.8 mg/dL (<150/24HR)
[2022-07-22 12:00] VITALS: BP 110/61
[2022-07-22 12:12] LABS: *BLOOD, URINE TRACE (NEGATIVE)
--- NOTE | 2022-07-22 14:10 | NUR ---
Xuan from Wound Consult in room to see patients nose scab and sacral area. I also gave her a verbal update on pt's wounds.
[2022-07-22 15:29] LABS: BACTERIA,URINE FEW /HPF (NONE SEEN); SQUAMOUS EPITHELIAL CELL,UR FEW /HPF (NONE SEEN)
[2022-07-22 16:00] VITALS: BP 102/52
[2022-07-22] MEDS: WARFARIN SODIUM 2 MG TABLET PO SCH (17:35)
--- NOTE | 2022-07-22 19:21 | NUR ---
Endorsed pt to Layda, caustic cresylate shift superintendent RN, pt stable, no s/s of distress noted.
[2022-07-22] MEDS: DOCUSATE SODIUM 100 MG CAPSULE PO SCH (20:42)
[2022-07-23 05:51] VITALS: BP 127/62
[2022-07-23] MEDS: PANTOPRAZOLE SODIUM 40 MG TABLET.DR PO SCH (06:20)
[2022-07-23 08:00] VITALS: BP 109/69
[2022-07-23] MEDS: ENSURE CLEAR 240 ML LIQUID (MIX BERRY) PO SCH ×2 (08:08→17:11)
[2022-07-23] MEDS: METOPROLOL SUCCINATE XL 50 MG TAB.SR.24H PO SCH ×2 (08:29→08:30)
[2022-07-23] MEDS: DIGOXIN 125 MCG TABLET PO SCH (08:30)
[2022-07-23] MEDS: TAMSULOSIN HCL 0.4 MG CAP.SR.24H PO SCH ×2 (08:30→20:38)
[2022-07-23] MEDS: ENOXAPARIN SODIUM 120 MG/0.8 ML SYRINGE SQ SCH ×2 (08:32→20:39)
[2022-07-23] MEDS: ARGININE/GLUTAMINE/CALCIUM BMB 1 EACH POWD.PACK PO SCH ×2 (09:13→17:11)
--- NOTE | 2022-07-23 13:39 | NUR ---
0730-PATIENT REC'D IN BED, ASLEEP, NO RESPIRATORY DISTRESS NOTED, ON R/A PEYTON. WELL. PATIENT CONTINUES ON LOVENOX/COUMADIN ORDERED BY MD, NO S/S OF BLEEDING OBSERVED, SAFETY PRECAUTIONS EXPLAINED/OBSERVED. HANDLED PATIENT GENTLY AND CAREFULLY DURING CARE. ENCOURAGED PATIENT TO USE CALL LIGHT FOR HELP WHEN NEEDED WITH GOOD UNDERSTANDING. 0900-SCHEDULED/DUE MEDICATION ADMINISTERED ORDERED WITH NO ASE NOTED, ORAL FLUIDS TAKEN WELL, SALEH CATHETER DRAINING TO GRAVITY, NO C/O BLADDER DISCOMFORT. 1100-PATIENT WAS SEEN BY DR ARSALAN GARZA WITH NO NEW ORDERS AT THIS TIME. 1:15PM-PER DR. ARSALAN GARZA, GO AHEAD AND DC SALEH CATHETER AND TO A TRIAL. PATIENT INFORMED OF ORDER AND AGREES, HAS A VISITOR AT BEDSIDE, ASKED TO REMOVE THE SALEH CATHETER ONCE VISITOR IS GONE. WISHES AND CHOICES GRANTED/RESPECTED.
[2022-07-23 16:00] VITALS: BP 117/52
[2022-07-23] MEDS: WARFARIN SODIUM 2 MG TABLET PO SCH (17:10)
--- NOTE | 2022-07-23 18:49 | NUR ---
1700-F/CATH DC'D ORDERED BY . PATIENT TOLERATED WELL PROCEDURE, WILL MONITOR FOR URINE OUTPUT. 1850-PATIENT WAS ABLE TO URINATE, DENIES ANY BLADDER DISCOMFORT. WILL CONT. TO MONITOR. ENDORSED TO INCOMING RN FOR PROPER FOLLOW UP.
[2022-07-23 19:30] VITALS: BP 111/62
[2022-07-23] MEDS: DOCUSATE SODIUM 100 MG CAPSULE PO SCH (20:38)
--- NOTE | 2022-07-23 23:00 | NUR ---
1925-PATIENT IN BED, AWAKE, A/Ox2, VERBALIZES NEEDS AND FOLLOWS DIRECTIONS. NO PHYSICAL OR RESPIRATORY DISTRESS NOTED. SAFETY MEASURES AND CALL LIGHT AT REACH, bed at lowest position, wheels lock, and two side rails up, bed alarm on. ORAL FLUIDS OFFERED PEYTON. AND TAKEN WELL. 2200- The patient is awake. The patient has no signs of distress, or sob. Will continue to monitor throughout the shift. 0000- The patient requested extra pillows. Item is given to the patient. The patient has no sob. Will continue to monitor throughout the shift.
[2022-07-24 04:00] VITALS: BP 113/74
[2022-07-24] MEDS: PANTOPRAZOLE SODIUM 40 MG TABLET.DR PO SCH (06:08)
[2022-07-24 07:55] VITALS: BP 125/71
[2022-07-24] MEDS: DIGOXIN 125 MCG TABLET PO SCH (09:15)
[2022-07-24] MEDS: TAMSULOSIN HCL 0.4 MG CAP.SR.24H PO SCH ×2 (09:15→20:35)
[2022-07-24] MEDS: ARGININE/GLUTAMINE/CALCIUM BMB 1 EACH POWD.PACK PO SCH ×2 (09:16→16:24)
[2022-07-24] MEDS: METOPROLOL SUCCINATE XL 50 MG TAB.SR.24H PO SCH (09:16)
[2022-07-24] MEDS: ENOXAPARIN SODIUM 120 MG/0.8 ML SYRINGE SQ SCH ×2 (09:17→20:37)
[2022-07-24] MEDS: ENSURE CLEAR 240 ML LIQUID (MIX BERRY) PO SCH ×2 (09:19→16:33)
[2022-07-24 16:30] VITALS: BP 132/82
--- NOTE | 2022-07-24 16:39 | NUR ---
RN BLADDER SCAN PATIENT PATIENT HAS A HISTORY OF URINARY RETENTION. BLADDER SCANNER YIELD X>[id number], [id number], AND [id number]. PATIENT DENIES PAIN RELATED TO BLADDER BEING FULL. RN NOTIFIED .
[2022-07-24] MEDS ORDERED: WARFARIN SODIUM 5 MG TABLET PO SCH (17:00)
[2022-07-24] MEDS ORDERED: WARFARIN SODIUM 2 MG TABLET PO SCH (17:00)
--- NOTE | 2022-07-24 19:32 | NUR ---
RECEIVED REPORT FROM DEEPALI BEST SHIFT RN. PATIENT IS ALERT & ORIENTED X1-2 AND SPEAKS KAZAKH. VITAL SIGNS STABLE. PATIENT TOLERATES PO MEDICATIONS AND DIET WELL. HOWEVER, THERE WERE PERIODS OF REFUSAL FOR MEALS. PATIENT VOIDS HOWEVER, NOTED EARLY, CONTINUES TO HAVE URINARY RETENTION. RN NOTIFIED . ORDERED SALEH CATHETER INSERTION. RN INSERTED SALEH CATHETER TO REMOVE THE URINE. TOTAL URINE AMOUNT 1000CC. PATIENT HAD 1 SMALL BOWEL MOVEMENT. PATIENT PARTICIPATES IN PHYSICAL AND OCCUPATION THERAPY PER PLAN. PATIENT DENIES PAIN DURING SHIFT. NO ACUTE DISTRESS NOTED. PATIENT TRIES MANY TIMES TO GET OUT OF BED WITHOUT ASSISTANCE OF NOTIFYING SUPERVISOR WELDING EQUIPMENT REPAIRER. SUPERVISOR WELDING EQUIPMENT REPAIRER ABLE TO REORIENT PATIENT. FALL PRECAUTIONS OBSERVED; INCLUDING BUT NOT LIMITED TO BED IN LOWEST POSITION AND BED ALARM ON. ALL NEEDS MET AT THIS TIME. ENDORSED CARE TO NEISHA BEST, FOR CONTINUATION OF CARE.
[2022-07-24 20:00] VITALS: BP 105/60
[2022-07-24] MEDS: DOCUSATE SODIUM 100 MG CAPSULE PO SCH (20:35)
--- NOTE | 2022-07-24 23:00 | NUR ---
1900-PATIENT IN BED, AWAKE, A/Ox2, VERBALIZES NEEDS AND FOLLOWS DIRECTIONS. NO PHYSICAL OR RESPIRATORY DISTRESS NOTED. The patient has a patent mejia catheter that is patent and below the bladder. SAFETY MEASURES AND CALL LIGHT AT REACH, bed at lowest position, wheels lock, and two side rails up, bed alarm on. ORAL FLUIDS OFFERED PEYTON. AND TAKEN WELL. Will continue to monitor throughout the shift. 2200- The patient is awake. The patient has no signs of distress, or sob. The patient request for an extra blanket. Item is given to the patient. Will continue to monitor throughout the shift. 0100- The patient requests extra pillows. Item is given to the patient. The patient has no sob or complains of pain. Will continue to monitor throughout the shift.
[2022-07-25 05:00] VITALS: BP 110/61
[2022-07-25] MEDS: PANTOPRAZOLE SODIUM 40 MG TABLET.DR PO SCH (06:35)
[2022-07-25 08:00] VITALS: BP 112/72
[2022-07-25] MEDS: TAMSULOSIN HCL 0.4 MG CAP.SR.24H PO SCH ×2 (09:03→20:06)
[2022-07-25] MEDS: ARGININE/GLUTAMINE/CALCIUM BMB 1 EACH POWD.PACK PO SCH ×2 (09:04→16:59)
[2022-07-25] MEDS: DIGOXIN 125 MCG TABLET PO SCH (09:04)
[2022-07-25] MEDS: METOPROLOL SUCCINATE XL 50 MG TAB.SR.24H PO SCH (09:04)
[2022-07-25] MEDS: ENSURE CLEAR 240 ML LIQUID (MIX BERRY) PO SCH ×2 (09:05→16:59)
[2022-07-25] MEDS: ENOXAPARIN SODIUM 120 MG/0.8 ML SYRINGE SQ SCH (09:05)
[2022-07-25 16:40] VITALS: BP 102/57
[2022-07-25] MEDS: WARFARIN SODIUM 4 MG TABLET PO SCH (17:20)
--- NOTE | 2022-07-25 19:48 | NUR ---
RECEIVED REPORT FROM DEEPALI BEST RN. PATIENT IS ALERT & ORIENTED X1-2 AND SPEAKS SINHALA. VITAL SIGNS STABLE. PATIENT TOLERATES PO MEDICATIONS AND DIET. PATIENT DENIES PAIN. SALEH CATHETER PATENT AND DRAINING. NO BOWEL MOVEMENT. AT 1700, RN CHECKED SALEH CATHETER. RN NOTED A LONG THIN STREAK OF BLOOD IN CATHETER. RN NOTIFIED PROVIDER. DISCONTINUED LOVENOX AND CONTINUED WARFARIN ADMIN. NO ACUTE DISTRESS NOTED. FALL PRECAUTIONS OBSERVED INCLUDING BUT NOT LIMITED TO BED IN LOWEST POSITION AND BED ALARM ON. ALL NEEDS MET AT THIS TIME. ENDORSED CARE TO NEISHA BEST FOR CONTINUATION OF CARE.
[2022-07-25] MEDS: DOCUSATE SODIUM 100 MG CAPSULE PO SCH (20:06)
[2022-07-25 20:11] VITALS: BP 117/57
--- NOTE | 2022-07-25 23:00 | NUR ---
1905-PATIENT IN BED, AWAKE, A/Ox2, VERBALIZES NEEDS AND FOLLOWS DIRECTIONS. NO PHYSICAL OR RESPIRATORY DISTRESS NOTED. The patient has a patent mejia catheter that is patent and below the bladder. SAFETY MEASURES AND CALL LIGHT AT REACH. Bed at lowest position, wheels lock, and two side rails up, bed alarm on. Will continue to monitor throughout the shift. 2100- The patient is awake. The patient has no signs of distress, or sob. The patient request for an extra pillow. Item is given to the patient. Will continue to monitor throughout the shift. 0000- The patient is asleep. The patient has no complains of pain. The patient has no sob. Will continue to monitor throughout the shift. 0300-The patient requests for an extra blanket. Item is given to the patient. The patient has no sob or complains of pain. Will continue to monitor throughout the shift.
[2022-07-26 04:11] VITALS: BP 118/65
[2022-07-26] MEDS: PANTOPRAZOLE SODIUM 40 MG TABLET.DR PO SCH (06:26)
[2022-07-26] MEDS: ENSURE CLEAR 240 ML LIQUID (MIX BERRY) PO SCH ×2 (08:33→17:18)
[2022-07-26] MEDS: DIGOXIN 125 MCG TABLET PO SCH (08:34)
[2022-07-26] MEDS: METOPROLOL SUCCINATE XL 50 MG TAB.SR.24H PO SCH (08:34)
[2022-07-26] MEDS: TAMSULOSIN HCL 0.4 MG CAP.SR.24H PO SCH ×2 (08:34→20:37)
[2022-07-26] MEDS: ARGININE/GLUTAMINE/CALCIUM BMB 1 EACH POWD.PACK PO SCH ×2 (09:14→17:18)
[2022-07-26 09:43] VITALS: BP 95/57
--- NOTE | 2022-07-26 09:57 | NUR ---
0730-REC'D PATIENT IN BED ASLEEP, NO RESPIRATORY DISTRESS NOTED ON OXYGEN AT TWO LITERS, SATURATING 94-96% ON R/A, ABLE TO WAKE UP ON GENTLY TOUCH. DENIES PAIN. SALEH CATHETER DRAINING TO GRAVITY. SAFETY MEASURES IN PLACE AND CALL LIGHT AT REACH. 0900-PATIENT EATING BREAKFAST, SCHEDULED/DUE MEDS ADMINISTERED AT THIS TIME. NO ASE NOTED. ORAL FLUIDS TAKEN WELL. CALL LIGHT AT REACH.
[2022-07-26 13:54] VITALS: BP 124/61
[2022-07-26 15:32] VITALS: BP 96/48
[2022-07-26] MEDS: WARFARIN SODIUM 4 MG TABLET PO SCH (17:34)
--- NOTE | 2022-07-26 19:19 | NUR ---
NEEDS ANTICIPATED DURING SHIFT, NO ROBERT OR LOC NOTED, PATIENT WAS TOO SLEEPY DURING HIS PHYSICAL THERAPY. INTERVIEWED PATIENT AND ASKED IF HE WAS FEELING SICK, PATIENT STATED "I AM TOO SLEEPY, I GUESS I DID NOT SLEEP GOOD DURING THE NIGHT." PATIENT TOLERATED MEALS WELL, DENIES GI DISCOMFORT. SALEH CATHETER DRAINING TO GRAVITY. NO C/O BLADDER DISCOMFORT. CONTINUES ON COUMADIN, DOSE ADJUSTED PER PT/INR RESULTS. NO S/S OF BLEEDING NOTED, SAFETY PRECAUTIONS OBSERVED. HANDLED GENTLY AND CAREFULLY DURING CARE.
[2022-07-26 20:00] VITALS: BP 116/56
[2022-07-26] MEDS: DOCUSATE SODIUM 100 MG CAPSULE PO SCH (20:37)
[2022-07-26] MEDS: ENOXAPARIN SODIUM 120 MG/0.8 ML SYRINGE SQ SCH (20:38)
[2022-07-27 04:00] VITALS: BP 111/51
[2022-07-27] MEDS: PANTOPRAZOLE SODIUM 40 MG TABLET.DR PO SCH (06:06)
[2022-07-27 07:02] VITALS: BP 111/51
[2022-07-27 07:34] VITALS: BP 112/58
--- NOTE | 2022-07-27 07:49 | NUR ---
Awake, alert, oriented x 3. Denies discomfort at this time, on moderate high back rest.
[2022-07-27] MEDS: TAMSULOSIN HCL 0.4 MG CAP.SR.24H PO SCH ×2 (08:49→20:26)
[2022-07-27] MEDS: DIGOXIN 125 MCG TABLET PO SCH (08:49)
[2022-07-27] MEDS: METOPROLOL SUCCINATE XL 50 MG TAB.SR.24H PO SCH (08:49)
[2022-07-27] MEDS: ARGININE/GLUTAMINE/CALCIUM BMB 1 EACH POWD.PACK PO SCH ×2 (08:50→17:45)
[2022-07-27] MEDS: ENOXAPARIN SODIUM 120 MG/0.8 ML SYRINGE SQ SCH ×2 (08:50→20:27)
[2022-07-27] MEDS: ENSURE CLEAR 240 ML LIQUID (MIX BERRY) PO SCH ×2 (08:50→17:45)
--- NOTE | 2022-07-27 15:54 | NUR ---
With BM to soft stool. Incontinence care done. Wound care done as ordered. Repositioned comfortably.
[2022-07-27 16:00] VITALS: BP 115/55
[2022-07-27] MEDS: WARFARIN SODIUM 5 MG TABLET PO SCH (17:46)
--- NOTE | 2022-07-27 18:12 | NUR ---
Meal set up, encouraged po intake
[2022-07-27] MEDS: DOCUSATE SODIUM 100 MG CAPSULE PO SCH (20:27)
[2022-07-27 20:55] VITALS: BP 106/57
[2022-07-27] MEDS: FINASTERIDE 5 MG TABLET PO SCH (23:03)
[2022-07-28 04:31] VITALS: BP 116/61
[2022-07-28] MEDS: PANTOPRAZOLE SODIUM 40 MG TABLET.DR PO SCH (06:04)
--- NOTE | 2022-07-28 07:20 | NUR ---
Received report from bry Jerez nurse. Received pt in bed asleep, no s/s of distress noted, no respiratory distress noted.
[2022-07-28] MEDS: ENSURE CLEAR 240 ML LIQUID (MIX BERRY) PO SCH ×2 (07:45→17:17)
[2022-07-28 08:00] VITALS: BP 135/63
[2022-07-28] MEDS: ENOXAPARIN SODIUM 120 MG/0.8 ML SYRINGE SQ SCH ×2 (09:11→20:58)
[2022-07-28] MEDS: DIGOXIN 125 MCG TABLET PO SCH (09:13)
[2022-07-28] MEDS: TAMSULOSIN HCL 0.4 MG CAP.SR.24H PO SCH ×2 (09:13→20:56)
[2022-07-28] MEDS: FINASTERIDE 5 MG TABLET PO SCH (09:13)
[2022-07-28] MEDS: METOPROLOL SUCCINATE XL 50 MG TAB.SR.24H PO SCH (09:14)
[2022-07-28] MEDS: ARGININE/GLUTAMINE/CALCIUM BMB 1 EACH POWD.PACK PO SCH ×2 (09:15→17:17)
--- NOTE | 2022-07-28 15:59 | NUR ---
2+ pitting edema swelling noted on Left hand and forearm noted. Wedding ring removed at 0800 with lotion, due to swelling/edema, labeled and placed at pt's bedside. Pt's took wedding ring home when she left today at 1540. Addendum: 07/28/22 at 1647 by COY HARDIN RN Spoke with MD, will elevate above the heart and continue to monitor for changes, per .
[2022-07-28 16:06] VITALS: BP 130/61
--- NOTE | 2022-07-28 16:47 | NUR ---
Bleeding noted at the urethral opening of penis, where mejia exits. Notified MD Paige. Will continue to monitor.
[2022-07-28] MEDS: WARFARIN SODIUM 5 MG TABLET PO SCH (17:18)
--- NOTE | 2022-07-28 19:08 | NUR ---
Spoke with Pt's Mary Alice Guzman at 1727, updated on pt's status, requested a urine test prior to discharge. UA ordered per SEVERIANO Gibson and talking to Garrett.
[2022-07-28 20:00] VITALS: BP 110/51
[2022-07-28] MEDS: DOCUSATE SODIUM 100 MG CAPSULE PO SCH (20:56)
[2022-07-29 05:56] VITALS: BP 102/56
[2022-07-29] MEDS: PANTOPRAZOLE SODIUM 40 MG TABLET.DR PO SCH (06:08)
[2022-07-29 07:43] VITALS: BP 110/55
[2022-07-29] MEDS: METOPROLOL SUCCINATE XL 50 MG TAB.SR.24H PO SCH (09:00)
[2022-07-29] MEDS: DIGOXIN 125 MCG TABLET PO SCH (09:49)
[2022-07-29] MEDS: FINASTERIDE 5 MG TABLET PO SCH (09:49)
[2022-07-29] MEDS: TAMSULOSIN HCL 0.4 MG CAP.SR.24H PO SCH ×2 (09:49→20:12)
[2022-07-29] MEDS: ENSURE CLEAR 240 ML LIQUID (MIX BERRY) PO SCH ×2 (09:49→17:18)
[2022-07-29] MEDS: ENOXAPARIN SODIUM 120 MG/0.8 ML SYRINGE SQ SCH ×2 (09:54→20:14)
[2022-07-29] MEDS: ARGININE/GLUTAMINE/CALCIUM BMB 1 EACH POWD.PACK PO SCH ×2 (09:57→17:19)
--- NOTE | 2022-07-29 14:12 | NUR ---
INTERDISCIPLINARY TEAM CONFERENCE
[2022-07-29 14:17] LABS: *BILIRUBIN,URIN NEGATIVE (NEGATIVE); *CLARITY,URINE CLEAR (CLEAR); *COLOR,URINE YELLOW (YELLOW); *KETONES,URINE NEGATIVE (NEGATIVE); *UROBILINOGEN,URINE >=8.0 E.U./dl (NORMAL); LEUKOCYTE ESTERASE ,URINE 1+ (NEGATIVE); NITRITE, URINE NEGATIVE (NEGATIVE); UGLUCOSE NEGATIVE (NEGATIVE)
[2022-07-29 14:21] LABS: *BLOOD, URINE TRACE (NEGATIVE)
[2022-07-29 15:09] LABS: BACTERIA,URINE FEW /HPF (NONE SEEN); SQUAMOUS EPITHELIAL CELL,UR NONE SEEN /HPF (NONE SEEN)
[2022-07-29 15:46] VITALS: BP 110/59
[2022-07-29] MEDS: WARFARIN SODIUM 5 MG TABLET PO SCH (17:18)
--- NOTE | 2022-07-29 19:53 | NUR ---
RECEIVED REPORT FROM DEEPALI PALACIO RN. PATIENT IS ALERT & ORIENTED X1-2 AND SPEAKS AUSTRIAN. VITAL SIGNS STABLE. PATIENT TOLERATES PO MEDICATIONS AND DIET WELL. PATIENT PARTICIPATES WITH PHYSICAL AND OCCUPATIONAL THERAPY SCHEDULE. UA COLLECTED AND RESULTED BY LAB. RN REMOVED SALEH CATHETER PER MD ORDERS. PATIENT HAS NOT VOIDED. AT 1830, RN BLADDER SCANNED PATIENT. BLADDER SCAN SHOWERED: 333, 317, & 327. RN NOTIFIED DR. NUHA RYDER MD FOR ADDITIONAL ORDERS. NO ADDITIONAL ORDERS WERE GIVEN AT THIS TIME. PATIENT DENIES PAIN. NO ACUTE DISTRESS NOTED. FALL PRECAUTIONS OBSERVED; INCLUDING BUT NOT LIMITED TO BED IN LOWEST POSITION AND BED ALARM ON. ALL NEEDS MET AT THIS TIME. ENDORSED CARE TO NEISHA PURCELL, FOR CONTINUATION OF CARE.
[2022-07-29 20:00] VITALS: BP 123/60
--- NOTE | 2022-07-29 20:00 | NUR ---
NSG: Received patient lying in bed. a/o x2,no c/o pain or discomfort at this time. call light w/in reach.
[2022-07-29] MEDS: DOCUSATE SODIUM 100 MG CAPSULE PO SCH (20:12)
--- NOTE | 2022-07-29 22:00 | NUR ---
patient voided in diapper. assisted with adl's.
--- NOTE | 2022-07-30 01:06 | NUR ---
NSG: PATIENT I9S RESTING IN BED. REPOSITIONED Q 2 HRS FOR SKIN SAFETY. PATIENT VOIDED LARGE AMOUNT URINE. GOOD PERICARE PROVIDED. KEPT CLEAN AND DRY. CALL LIGHT W/IN REACH.
[2022-07-30 04:00] VITALS: BP 115/58
[2022-07-30] MEDS: PANTOPRAZOLE SODIUM 40 MG TABLET.DR PO SCH (06:06)
--- NOTE | 2022-07-30 06:16 | NUR ---
NSG: REMAIN CALM AND COOPERATIVE. VOIDED X2 AFTER FLOMAX PO GIVEN. ASSISTED WITH ADL'S. KEPT CLEAN AND DRY. CALL LIGHT W/IN REACH.
--- NOTE | 2022-07-30 07:42 | NUR ---
WOUND CARE CONSULT: PT PRESENTS WITH SACRAL DEEP TISSUE INJURY IN EVOLUTION WHICH EXTENDS TO LEFT BUTTOCK, PRESENT ON ADMISSION INTACT DTI. RECOMMENDATIONS MADE FOR SKIN PROTECTION AND WOUND CARE. DISCUSSED WITH NURSING STAFF. PT IS INCONTINENT AT TIMES. IN AGREEMENT WITH PLAN OF CARE. Addendum: 07/30/22 at 0743 by PRERNA ANGULO RN Amended: Links added.
[2022-07-30 08:00] VITALS: BP 117/59
[2022-07-30] MEDS: DIGOXIN 125 MCG TABLET PO SCH (08:28)
[2022-07-30] MEDS: FINASTERIDE 5 MG TABLET PO SCH (08:28)
[2022-07-30] MEDS: TAMSULOSIN HCL 0.4 MG CAP.SR.24H PO SCH ×2 (08:28→20:34)
[2022-07-30] MEDS: ENSURE CLEAR 240 ML LIQUID (MIX BERRY) PO SCH ×2 (08:29→16:51)
[2022-07-30] MEDS: METOPROLOL SUCCINATE XL 50 MG TAB.SR.24H PO SCH (08:29)
[2022-07-30] MEDS: ARGININE/GLUTAMINE/CALCIUM BMB 1 EACH POWD.PACK PO SCH ×2 (08:29→16:51)
[2022-07-30] MEDS: ENOXAPARIN SODIUM 120 MG/0.8 ML SYRINGE SQ SCH (08:30)
[2022-07-30] MEDS: BETHANECHOL CHLORIDE 25 MG TABLET PO SCH ×2 (14:04→16:50)
[2022-07-30] MEDS ORDERED: NITROFURANTOIN/NITROFURAN MAC 100 MG CAPSULE PO SCH (15:30)
[2022-07-30 16:24] VITALS: BP 118/68
[2022-07-30] MEDS: WARFARIN SODIUM 5 MG TABLET PO SCH (16:56)
[2022-07-30] MEDS: CARVEDILOL 3.125 MG TABLET PO SCH (18:33)
--- NOTE | 2022-07-30 19:45 | NUR ---
RECEIVED REPORT FROM DEEPALI PURCELL SHIFT SUPERVISOR BILLPOSTING. PATIENT IS ALERT & ORIENTED X1-2 AND SPEAKS CROATIAN. VITAL SIGNS STABLE. PATIENT TOLERATES PO MEDICATIONS AND DIET WELL. PATIENT PARTICIPATES WITH PHYSICAL AND OCCUPATIONAL THERAPY SCHEDULE. PATIENT UNABLE TO VOID PROPERLY. BLADDER SCANNER AT 1100 SHOWED >800CC. RN NOTIFIED MD. MD ORDERED STRAIGHT CATHETER. RN REMOVED 1275CC OF URINE AT 1400. MD ORDERS CARRIED OUT. RN INSERTED SALEH CATHETER AT 1600. ISAMAR, OF PATIENT, CALLED. RN UPDATED HER ON PATIENT STATUS. RN ENCOURAGED PATIENT TO REACH OUT TO MD VIA [employer] HOTLINE. ALL QUESTIONS ANSWERED. PATIENT DENIES PAIN. NO ACUTE DISTRESS NOTED. FALL PRECAUTIONS OBSERVED; INCLUDING BUT NOT LIMITED TO BED IN LOWEST POSITION AND BED ALARM ON. ALL NEEDS MET AT THIS TIME. ENDORSED CARE TO NEISHA PURCELL, FOR CONTINUATION OF CARE. Addendum: 07/30/22 at 1949 by MAURIZIO AGUILAR RN WOUND CARE PROVIDED. 1 BOWEL MOVEMENT NOTED.
--- NOTE | 2022-07-30 19:58 | NUR ---
NSG: Received patient lying in bed awake plesant upon approach. alert and oriented x2, no c/o pain or discomfort at this time. f/c patent and draining yellow urine. call light w/in reach.
[2022-07-30] MEDS: DOCUSATE SODIUM 100 MG CAPSULE PO SCH (20:34)
[2022-07-30] MEDS ORDERED: NITROFURANTOIN MACROCRYSTAL 100 MG CAPSULE PO SCH (21:00)
[2022-07-30 23:03] VITALS: BP 111/63
[2022-07-31 04:00] VITALS: BP 118/61
--- NOTE | 2022-07-31 04:03 | NUR ---
NSG: Remain calm and cooperative. f/c patent and draining yellow urine. assisted with adl's. turn q 2 hrs for skin safety, no c/o pain or discomfort at this time. call light w/in reach.
[2022-07-31] MEDS: PANTOPRAZOLE SODIUM 40 MG TABLET.DR PO SCH (06:09)
[2022-07-31 06:40] LABS: HEMATOCRIT 26.1 % (36.7-47.1); MEAN CORPUSCULAR HEMOGLOBIN 26.6 uug (23.8-33.4); MEAN CORPUSCULAR VOLUME 81.2 fL (73.0-96.2); PLATELET COUNT (AUTO) 432 K/uL (152-348)
[2022-07-31 07:22] LABS: CREATININE 0.8 mg/dL (0.6-1.3); MAGNESIUM 1.7 mg/dL (1.8-2.4); PHOSPHOROUS 3.2 mg/dL (2.5-4.9)
[2022-07-31 07:58] VITALS: BP 124/66
[2022-07-31] MEDS: ENSURE CLEAR 240 ML LIQUID (MIX BERRY) PO SCH (08:53)
[2022-07-31] MEDS: TAMSULOSIN HCL 0.4 MG CAP.SR.24H PO SCH (09:11)
[2022-07-31] MEDS: DIGOXIN 125 MCG TABLET PO SCH (09:12)
[2022-07-31] MEDS: FINASTERIDE 5 MG TABLET PO SCH (09:12)
[2022-07-31] MEDS: CARVEDILOL 3.125 MG TABLET PO SCH (09:13)
[2022-07-31] MEDS: ARGININE/GLUTAMINE/CALCIUM BMB 1 EACH POWD.PACK PO SCH (09:13)
[2022-07-31] MEDS: BETHANECHOL CHLORIDE 25 MG TABLET PO SCH ×2 (09:13→13:33)
[2022-07-31] MEDS ORDERED: MAGNESIUM SULFATE/D5W 100 ML IV SCH (09:45)
[2022-07-31] MEDS ORDERED: MAGNESIUM OXIDE 400 MG TABLET PO ONE (10:30)
[2022-07-31] MEDS ORDERED: POTASSIUM CHLORIDE 20 MEQ TAB.PRT.SR PO ONE ×2 (11:00→13:00)
[2022-07-31 15:52] VITALS: BP 124/64
[2022-07-31] MEDS ORDERED: APIX2.5T PO (15:56)
[2022-07-31] MEDS ORDERED: FINA5TAB11 PO (15:56)
[2022-07-31] MEDS ORDERED: TAMS-3 PO (15:56)
[2022-07-31] MEDS ORDERED: CARV3.122 PO (15:56)
[2022-07-31] MEDS ORDERED: NITR50CA PO (15:56)
[2022-08-01] MEDS ORDERED: COLL30OI TP (11:48)
[2022-08-01] MEDS ORDERED: DOCU250C14 PO (11:51)
[2022-08-01] MEDS ORDERED: FERR325T28 PO (11:51)
[2022-08-01] MEDS ORDERED: AMIN30LI25 PO (11:54)
== END 2022-07-31 16:45 | disposition home health service (06) | DRG 70 ==
PROVIDERS: ADMIT Physical Medicine & Rehabilitation Pain Medicine; ATTEND Physical Medicine & Rehabilitation Pain Medicine
DX: G93.41 Metabolic encephalopathy (principal); E43 Unspecified severe protein-calorie malnutrition; I21.A1 Myocardial infarction type 2; N17.0 Acute kidney failure with tubular necrosis; I50.33 Acute on chronic diastolic (congestive) heart failure; N39.0 Urinary tract infection, site not specified; E87.20 Acidosis, unspecified; N13.6 Pyonephrosis; B96.1 Klebsiella pneumoniae [K. pneumoniae] as the cause of diseases classified elsewhere; D64.9 Anemia, unspecified; I48.91 Unspecified atrial fibrillation; F03.90 Unspecified dementia, unspecified severity, without behavioral disturbance, psychotic disturbance, mood disturbance, and anxiety; I11.0 Hypertensive heart disease with heart failure; E87.6 Hypokalemia; M79.642 Pain in left hand; E88.09 Other disorders of plasma-protein metabolism, not elsewhere classified; Z86.73 Personal history of transient ischemic attack (TIA), and cerebral infarction without residual deficits; Z91.81 History of falling; M89.8X8 Other specified disorders of bone, other site; N40.1 Benign prostatic hyperplasia with lower urinary tract symptoms; R33.8 Other retention of urine; Z79.01 Long term (current) use of anticoagulants; Z79.899 Other long term (current) drug therapy
CPT/HCPCS: 36415; 73130; 76770; 82378; 83735; 84100; 84156; 84300; 84443; 85025; 85610; 86301; 97535-GO-CO; A4663; A6209; A6213; C1758; J1650; J8499